=== PATIENT | female | born 1995 | race Caucasian/White ===

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

== ENCOUNTER 2017-07-06 10:32 | Emergency (ER) | payer OTHER ==
[~2017-07-06] VITALS: Ht 157.5 cm; Wt 54.6 kg
[2017-07-06 10:36] VITALS: BP 129/85
[2017-07-06] MEDS ORDERED: NAPROXEN500 MG PO (11:20)
== END 2017-07-06 11:29 | disposition home or self-care (01) ==
LOC: EME 10:32
DX: S67.192A Crushing injury of right middle finger, initial encounter (principal); S60.031A Contusion of right middle finger without damage to nail, initial encounter; W23.0XXA Caught, crushed, jammed, or pinched between moving objects, initial encounter
CPT/HCPCS: 73130; 99281; 99283

== ENCOUNTER 2018-01-08 17:34 | Emergency (ER) | payer OTHER ==
[~2018-01-08] VITALS: Ht 154.9 cm; Wt 55.5 kg
[~2018-01-08 17:34] MED LIST changes: +NAPROXEN500 MG PO
[2018-01-08 19:48] LABS: HEMATOCRIT 38.1 % (36.0-46.0); HEMOGLOBIN 12.9 G/DL (11.9-15.5); MCH 28.1 PG (29.0-34.0); MCHC 33.9 G/DL (30.0-36.0); PLATELET COUNT 310 K/uL (156-360); RBC DIS.WIDTH-CV 13.3 % (11.8-14.6); RBC DIS.WIDTH-SD 40.6 % (39-53); RED BLOOD COUNT 4.59 M/uL (3.80-5.20); WHITE BLOOD COUNT 8.6 K/uL (4.1-10.2)
[2018-01-08 19:59] LABS: ALBUMIN 4.4 g/dL (3.2-4.8); CHLORIDE 105 mEq/L (99-109); POTASSIUM 3.7 mEq/L (3.7-5.4); SODIUM 140 mEq/L (136-147)
[2018-01-08 20:01] LABS: GLUCOSE 100 mg/dL (70-99)
[2018-01-08 20:02] LABS: TOTAL PROTEIN 7.9 g/dL (6.4-8.3)
[2018-01-08 20:04] LABS: TOTAL BILIRUBIN 0.2 mg/dL (0.0-1.0)
[2018-01-08 20:05] LABS: ALKALINE PHOSPHATASE 58 IU/L (3-129); CREATININE 0.8 mg/dL (0.6-1.3); GFR ESTIMATE (CALCULATED) > 59 mL/min/
[2018-01-08 20:06] LABS: UREA NITROGEN (BUN) 8 mg/dL (9-23)
[2018-01-08 20:07] LABS: AST (GOT) 15 IU/L (2-34)
[2018-01-08 20:08] LABS: ALT (GPT) 10 IU/L (3-49)
[2018-01-08 20:09] LABS: LIPASE 15 U/L (1.0-51.0)
[2018-01-08 20:14] LABS: QUANTITATIVE HCG < 4.0 MIU/ML
[2018-01-08 20:50] LABS: APPEARANCE CLEAR ((CLEAR)); BILIRUBIN NEGATIVE; BLOOD LARGE; COLOR YELLOW ((YELLOW)); GLUCOSE (STRIP) NEGATIVE; KETONES NEGATIVE; LEUKOCYTES NEGATIVE; NITRITE NEGATIVE; PROTEIN (STRIP) NEGATIVE; SPECIFIC GRAVITY 1.015 (1.000-1.030); UROBILINOGEN 0.2 MG/DL (0.2-1.0)
[2018-01-08 21:00] LABS: BACTERIA NONE SEEN /HPF; EPITHELIAL CELLS RARE /HPF; MUCUS TRACE /LPF; RED BLOOD CELLS 0-5 /HPF (0-5); UCUL ADDED? NO; WHITE BLOOD CELLS 0-5 /HPF (0-5)
[2018-01-08] MEDS ORDERED: NORCO 5/3251 TABLET PO (21:34)
[2018-01-08 21:53] VITALS: BP 120/70
== END 2018-01-08 22:00 | disposition home or self-care (01) ==
LOC: EME 17:34
PROVIDERS: Physician Assistant
DX: N80.9 Endometriosis, unspecified (principal)
CPT/HCPCS: 76770; 76856; 80053; 81003; 83690; 84702; 85027; 99281; 99285

== ENCOUNTER 2018-01-18 14:16 | Emergency (ER) | payer OTHER ==
[~2018-01-18] VITALS: Ht 154.9 cm; Wt 55.1 kg
[2018-01-18 14:34] LABS: HEMATOCRIT 37.8 % (36.0-46.0); HEMOGLOBIN 12.7 G/DL (11.9-15.5); MCH 28.2 PG (29.0-34.0); MCHC 33.6 G/DL (30.0-36.0); MCV 83.8 FL (83-99); PLATELET COUNT 316 K/uL (156-360); RBC DIS.WIDTH-CV 13.3 % (11.8-14.6); RBC DIS.WIDTH-SD 40.7 % (39-53); RED BLOOD COUNT 4.51 M/uL (3.80-5.20); WHITE BLOOD COUNT 7.8 K/uL (4.1-10.2)
[2018-01-18 14:42] LABS: ALBUMIN 4.3 g/dL (3.2-4.8); CHLORIDE 103 mEq/L (99-109); POTASSIUM 3.9 mEq/L (3.7-5.4); SODIUM 140 mEq/L (136-147)
[2018-01-18 14:44] LABS: GLUCOSE 106 mg/dL (70-99); TOTAL PROTEIN 7.5 g/dL (6.4-8.3)
[2018-01-18 14:46] LABS: TOTAL BILIRUBIN 0.2 mg/dL (0.0-1.0)
[2018-01-18 14:48] LABS: ALKALINE PHOSPHATASE 53 IU/L (3-129); CREATININE 0.8 mg/dL (0.6-1.3); GFR ESTIMATE (CALCULATED) > 59 mL/min/
[2018-01-18 14:49] LABS: UREA NITROGEN (BUN) 7 mg/dL (9-23)
[2018-01-18 14:50] LABS: AST (GOT) 14 IU/L (2-34)
[2018-01-18 14:51] LABS: ALT (GPT) 10 IU/L (3-49)
[2018-01-18 14:57] LABS: QUANTITATIVE HCG < 4.0 MIU/ML
[2018-01-18 15:02] LABS: APPEARANCE CLEAR ((CLEAR)); BILIRUBIN NEGATIVE; BLOOD MODERATE; COLOR STRAW ((YELLOW)); GLUCOSE (STRIP) NEGATIVE; KETONES NEGATIVE; LEUKOCYTES TRACE; NITRITE NEGATIVE; PROTEIN (STRIP) NEGATIVE; SPECIFIC GRAVITY 1.005 (1.000-1.030); UROBILINOGEN 0.2 MG/DL (0.2-1.0)
[2018-01-18 15:07] LABS: BACTERIA RARE /HPF; EPITHELIAL CELLS 1+ /HPF; MUCUS NONE SEEN /LPF; RED BLOOD CELLS 0-5 /HPF (0-5); UCUL ADDED? NO; WHITE BLOOD CELLS 0-5 /HPF (0-5)
[2018-01-18 20:57] LABS: SOURCE SWAB
[2018-01-18] MEDS ORDERED: FLEXERIL10 MG PO (21:00)
[2018-01-18] MEDS ORDERED: MOTRIN600 MG PO (21:00)
[2018-01-18 21:54] VITALS: BP 117/88
== END 2018-01-18 21:58 | disposition home or self-care (01) ==
LOC: EME 14:16
PROVIDERS: Nurse Practitioner Family
DX: R10.2 Pelvic and perineal pain (principal); N93.9 Abnormal uterine and vaginal bleeding, unspecified; Z79.3 Long term (current) use of hormonal contraceptives; Z87.42 Personal history of other diseases of the female genital tract
CPT/HCPCS: 76856; 80053; 81003; 84702; 85027; 87210; 87491; 87591; 99281; 99284